=== PATIENT | male | born 1950 | race Caucasian/White ===

== ENCOUNTER 2023-05-31 06:26 | Outpatient (OUT) | payer OTHER, SELFPAY ==
[2023-05-31 07:03] LABS: Basophils Percent Auto 0.6 % (0.2-2.0); Eosinophils Absolute Auto 0.2 10^3/uL (0.0-0.7); Eosinophils Percent Auto 2.8 % (0.9-7.0); Hematocrit 42.1 % (42.0-54.0); Hemoglobin 13.9 g/dL (14.0-18.0); Immature Granulocytes Abs Auto 0.02 10^3/uL (0.00-0.03); Immature Granulocytes Pct Auto 0.3 % (0.0-0.5); Lymphocytes Absolute Auto 1.7 10^3/uL (1.2-3.8); Lymphocytes Percent Auto 27.3 % (20.5-60.0); Mean Corpuscular Hemoglobin 31.4 pg (25.9-34.0); Mean Corpuscular Volume 95.2 fL (80.0-94.0); Mean Platelet Volume 9.6 fL (9.5-13.5); Monocytes Absolute Auto 0.5 10^3/uL (0.3-0.8); Monocytes Percent Auto 7.8 % (1.7-12.0); Neutrophils Absolute Auto 3.9 10^3/uL (1.4-6.5); Neutrophils Percent Auto 61.2 % (43.0-75.0); Platelet Count 193 10^3/uL (150-450); Red Blood Count 4.42 10^6/uL (4.70-6.10); Red Cell Distribution Width 12.7 % (11.0-15.0); White Blood Count 6.4 10^3/uL (4.0-11.0)
[2023-05-31 11:34] LABS: Alanine Aminotransferase 23 U/L (16-63); Albumin Globulin Ratio 1.1; Albumin Level 3.3 g/dL (3.4-5.0); Alkaline Phosphatase 48 U/L (46-116); Aspartate Amino Transferase 15 U/L (15-37); BUN Creatinine Ratio 20.9; Bilirubin Total 0.7 mg/dL (0.2-1.0); Calcium 9.1 mg/dL (8.5-10.1); Carbon Dioxide 29.4 mmol/L (21.0-32.0); Chloride 105 mmol/L (98-107); Chol HDL Ratio 2.5; Cholesterol 136 mg/dL (<=200); Estimated GFR (African America >60 (>=60); Estimated GFR (Non-African Ame >60 (>=60); Globulin 2.9 g/dL; Glucose 130 mg/dL (74-106); HDL Cholesterol 54 mg/dL (40-60); LDL Cholesterol Calculated 71.6 mg/dL; Potassium 4.4 mmol/L (3.5-5.1); Sodium 140 mmol/L (136-145); Total Protein 6.2 g/dL (6.4-8.2); Triglycerides 52 mg/dL (<=150); VLDL CHOLESTEROL 10.4 mg/dL
[2023-05-31 11:38] LABS: Estimated Average Glucose 137 mg/dL; Glycohemoglobin A1C 6.4 % (4.5-6.2)
[2023-05-31 11:52] LABS: Prostate Specific Antigen Scrn 1.72 ng/mL (<=4.00)
== END 2023-05-31 06:27 | disposition home or self-care (01) ==
LOC: LAB 06:32
PROVIDERS: PCP Internal Medicine; Visit Provider Internal Medicine
DX: Z00.00 Encounter for general adult medical examination without abnormal findings (principal); E78.2 Mixed hyperlipidemia; E11.65 Type 2 diabetes mellitus with hyperglycemia; I10 Essential (primary) hypertension; Z12.5 Encounter for screening for malignant neoplasm of prostate
CPT/HCPCS: 36415; 80053; 80061; 83036; 85025; G0103

== ENCOUNTER 2024-06-06 06:33 | Outpatient (OUT) | payer MEDICARE, SELFPAY ==
--- OUTSIDE RECORDS SUMMARY | 2024-06-06 06:39 | XMS_ITS | CCD ---
Author Organization [facility] Care Team Providers Care Forming Acid Dumper Name Role Phone REQUEST, DR SANFORD LISTED Attending Unavaila ble REQUEST, DR SANFORD LISTED Admitting Unavaila ble REQUEST, DR SANFORD LISTED Consulting Unavaila ble BALL, DR HARRIS Primary Care Unavailable BALL, DR HARRIS Attending Unavailable BALL, DR HARRIS Referring Unavailable BALL, DR HARRIS Admitting Unavailable BALL, DR HARRIS Primary Care Unavailable BALL, DR HARRIS Consulting Unavailable BALL, DR HARRIS Attending Unavailable BALL, DR HARRIS Admitting Unavailable BALL, DR HARRIS Primary Care Unavailable BALL, DR HARRIS Consulting Unavailable Rigoberto Brooke Unavailable Rigoberto Brooke DO Primary Care Provider RIGOBERTO BROOKE Referring Unavailable RIGOBERTO BROOKE Primary Care Unavailable LIV PALMA Attending Unavailable LIV PALMA Referring Unavailable RIGOBERTO BROOKE Primary Care Unavailable BELKYS GRECO Admitting Unavailable BELKYS GRECO Attending Unavailable BELKYS GRECO Referring Unavailable RIGOBERTO BROOKE Primary Care Unavailable STEFFANY RENEE Attending Unavailable RIGOEBRTO BROOKE Primary Care Unavailable Allergies Allergy Classification Reported Allergen(s) Allergy Type Date of Onset Reaction(s) Facility (12 sources) Sulfamethoxazole / Trimethoprim Drug Allergy 06-18-19 18 rash [employer] Other (11 sources) Medicinal cephalosporin and acting as antibacterial agent (FN) Drug allergy shortness of breath (severe), wheezing [employer] Other (7 sources) Ceclor *CEPHALOSPORINS* Propensity to adverse reactions Comment:Went to ER for treatment. Gabi Lowe CMA [facility] t3n [employer] Other (2 sources) Cefaclor; Translations: [CEFACLOR] Drug Allergy 06-18-19 18 Shortness Of Breath, Rash [facility] (1 source) Sulfamethoxazole / Trimethoprim; Translations: [SULFAMETHOXAZOLE-T RIMETHOPRIM] Drug Allergy 06-18-19 18 [facility] Medications Current Medications Medication Drug Class(es) Dates Sig (Normalized) Sig (Original) [id number] actuat albuterol 0.09 mg/actuat metered dose inhaler (6 sources) beta2-Adrenergic Agonist Start: 04-21-2023 take 2 puff(s) by inhalation every six hours as needed for cough Albuterol Sulfate HFA 108 (90 Base) MCG/ACT 2 puffs Inhalation every 6 hours as needed for cough and SOB for 30 days Mar, Active Start: 04-21-2023 take 2 puff(s) by in halation every six hours as needed for cough Albuterol Sulfate HFA 108 (90 Base) MCG/ACT 2 puffs Inhalation every 6 hours as needed for cough and SOB for 30 days Mar, Active amLODIPine 5 mg oral tablet (20 sources) Dihydropyridine Calcium Channel Janie take 1 tablet by mouth in the morning amLODIPine (NORVASC) 5 mg tablet Take 1 tablet (5 mg total) by mouth in the morning. 0 Active aspirin 81 mg delayed release oral tablet (20 sources) Platelet Aggregation Inhibitor, Nonsteroidal Anti-inflammatory Drug Start: Aspirin 81 81 MG 1 Orally Once a day for 90 days May, Active Start: 05-31-2022 fluticasone propionate 0.05 mg/actuat metered dose nasal spray (12 sources) Corticosteroid take 2 spray(s) nasal route in the morning fluticasone (FLONASE) 50 mcg/actuation nasal spray Administer 2 sprays into each nostril in the morning. 0 Active take 1 spray(s) nasal route once daily Flonase 50 MCG/DOSE 1 spray in each nostril Nasally Once a day Active take 1 spray(s) nasal route once daily lisinopril 5 mg oral tablet (20 sources) Angiotensin Converting Enzyme Inhibitor take 1 tablet by mouth in the morning lisinopriL (PRINIVIL,ZESTRIL) 5 mg tablet Take 1 tablet (5 mg total) by mouth in the morning. 0 Active metFORMIN hydrochloride 500 mg oral tablet (20 sources) Biguanide take 1 tablet by mouth in the morning, then take 1 tablet by mouth at mealtime metFORMIN (GLUCOPHAGE) 500 mg tablet Take 1 tablet (500 mg total) by mouth in the morning and 1 tablet (500 mg total) in the evening. Take with meals. 0 Active mupirocin 0.02 mg/mg topical ointment (12 sources) RNA Synthetase Inhibitor Antibacterial Start: 023 mupirocin (BACTROBAN) 2 % ointment Apply 1 Application topically in the morning. intranasally. 0 04/16/2023 Active Mupirocin 2 % 1 application Externally Twice a day for 30 days Active Mupirocin Calciu m 2 % 1 application Externally Twice a day for 30 days Active rosuvastatin calcium 5 mg oral tablet (20 sources) HMG-CoA Reductase Inhibitor Start: 05-31-2022 take 1 tablet by mouth in the morning rosuvastatin (CRESTOR) 5 mg tablet Take 1 tablet (5 mg total) by mouth in the morning. 0 09/07/2022 Active Problems Active Problems Problem Classification Problem Date Documented Date Episodic/Chronic Asthma (7 sources) Mild intermittent asthma; Translations: [Mild intermittent asthma, uncomplicated] Chronic Calculus of urinary tract (7 sources) H/O: urinary stone; Translations: [Personal history of urinary calculi] Episodic Cataract (1 source) Cataract Onset: 08-17-2023 Diabetes mellitus with complications (17 sources) Type 2 diabetes mellitus with hyperglycemia; Translations: [Hyperglycemia due to type 2 diabetes mellitus] Onset: 06-05-2021 Chronic Diabetes mellitus without complication (2 sources) Type 2 diabetes mellitus without complication; Translations: [Type 2 diabetes mellitus without complications] Onset: 08-10-2023 08-04-2023 Chronic Disorders of lipid metabolism (15 sources) Mixed hyperlipidemia; Translations: [Mixed hyperlipidemia] Onset: 06-05-2021 Chronic Essential hypertension (20 sources) Essential (primary) hypertension; Translations: [Essential hypertension] Onset: 06-05-2021 Chronic Immunizations and screening for infectious disease (18 sources) Carrier or suspected carrier of Methicillin resistant Staphylococcus aureus; Translations: [Methicillin resistant staphylococcus aureus carrier] Episodic Other aftercare (11 sources) H/O: high risk medication; Translations: [Other exterminator termite (current) drug therapy] Episodic Other aftercare (7 sources) Long-term current use of drug therapy; Translations: [Other custodial (current) drug therapy] Episodic Other and unspecified benign neoplasm (11 sources) Benign neoplasm of colon; Translations: [Benign neoplasm of descending colon] Episodic Other and unspecified benign neoplasm (2 sources) Benign neoplasm of descending colon Episodic Other and unspecified benign neoplasm (7 sources) Benign neoplasm of descending colon; Translations: [Benign neoplasm of descending colon] Episodic Other injuries and conditions due to external causes (7 sources) History of fall; Translations: [History of falling] Episodic Other nutritional; endocrine; and metabolic disorders (18 sources) Overweight; Translations: [Overweight] Episodic Other screening for suspected conditions (not mental disorders or infectious disease) (15 sources) Encounter for screening for malignant neoplasm of prostate; Translations: [Prostate specific antigen measurement] Onset: 06-05-2021 Episodic Past or Other Problems Problem Classification Problem Date Documented Da te Episodic/Chronic Other aftercare (1 source) Other custodial (current) drug therapy; Translations: [OTH BOOK EDITOR CURRENT DRUG THERAPY] Onset: 06-05-2021 Episodic Results Test Name Value Interpretation Reference Range Facility ECG 12 leadon 08-10-2023 TRACEMASTERVUE [facility] Comprehensive Metabolic Pane kurtis 05-31-2023 Albumin [Mass/Vol] 3.743441 g/dL Low 3.4-5.0 g/dL N [employer] ([employer]) Other ALP [Catalytic activity/Vol] 48 U/L Normal 46-116 U/L [employer] Other ALT [Catalytic activity/Vol] 23 U/L Normal 16-63 U/L [employer] Other Anion gap [Moles/Vol] 10.0 mmol/L [employer] Other AST [Catalytic activity/Vol] 15 U/L Normal 15-37 U/L [employer] Other Bilirubin [Mass/Vol] 0.5686547 mg/dL Normal 0.2-1.0 mg /dL [employer] Other Calcium [Mass/Vol] 9.0719668 mg/dL Normal 8.5-10 .1 mg/dL [employer] Other Chloride [Moles/Vol] 105 mmol/L Normal 98-107 mmol/L N [employer] ([employer]) Other CO2 [Moles/Vol] 29.46310086 mmol/L Normal 21.0-3 2.0 mmol/L [employer] Other Creatinine [Mass/Vol] 0.07700171 mg/dL Normal 0.70-1.30 mg/dL [employer] Other Glucose [Mass/Vol] 130 mg/dL High 74-106 mg/dL [facility] t3n [employer] Other Potassium [Moles/Vol] 4.08043689 mmol/L Normal 3.5-5.1 mmol/L [employer] Other Protein [Mass/Vol] 6.825242 g/dL Low 6.4-8.2 g/dL [facility] Other Sodium [Moles/Vol] 140 mmol/L Normal 136-145 mmol/L [employer] Other Urea nitrogen [Mass/Vol] 19.0440921 mg/dL High 7.0-18.0 mg/dL [employer] Other Urea nitrogen/Creatinine [Mass ratio] 20.9 mg/mg [employer] Other Comprehensive Metabolic Panel 2.9 g/dL [employer] Other Comprehensive Metabolic Panel 1.1 [employer] Other Comprehensive Metabolic Panel see note [employer] Other Comprehensive Metabolic Panel >60 >=60 [employer] Other Lipid Panelon 05-31-2023 Cholesterol [Mass/Vol] 136 mg/dL <=200 mg/dL [employer] Other Cholesterol in HDL [Mass/Vol] 54 mg/dL Normal 40-60 mg/dL [employer] Other Triglyceride [Mass/Vol] 52 mg/dL <=150 mg/dL [employer] Other Lipid Panel 71.6 mg/dL [employer] Other Lipid Panel 10.4 mg/dL [employer] Other Lipid Panel 2.5 [employer] Other CBC AUTO DIFFon 05-25-2022 BASO # 0.0 103/ul Normal 0.0-0.1 [facility] Comment on above: Performed By: #### C BC #### [facility] [address] [place] [address] Dr. Marbin Guerra Basophils/100 WBC (Bld) 0.3 % Normal 0.2-2.0 [facility] Comment on above: Performed By: #### C BC #### [facility] [address] [place] [address] Dr. Marbin Guerra EO # 0.1 103/ul Normal 0.0-0.7 [facility] Comment on above: Performed By: #### C BC #### [facility] [address] [place] [address] Dr. Marbin Guerra Eosinophils/100 WBC (Bld) 1.1 % Normal 0.9-7.0 [facility] Comment on above: Performed By: #### C BC #### [facility] [address] [place] [address] Dr. Marbin Guerra Erythrocyte distribution width (RBC) [Ratio] 13.1 % Normal 11.0-15.0 [facility] Comment on above: Performed By: #### C BC #### [facility] [address] [place] [address] Dr. Marbin Guerra Hematocrit (Bld) [Volume fraction] 43.5 % Normal 42.0-54.0 [facility] Comment on above: Performed By: #### C BC #### [facility] [address] [place] [address] Dr. Marbin Guerra Hemoglobin (Bld) [Mass/Vol] 14.5 g/dL Normal 14.0-18.0 [facility] Comment on above: Performed By: #### C BC #### [facility] [address] [place] [address] Dr. Marbin Guerra IG # 0.02 10e3/ul Normal 0.00-0.03 [facility] Comment on above: Performed By: #### C BC #### [facility] [address] [place] [address] Dr. Marbin Guerra IG % 0.3 % Normal 0.0-0.5 [facility] Comment on above: Performed By: #### C BC #### [facility] [address] [place] [address] Dr. Marbin Guerra LYMPH # 1.8 103/ul Normal 1.2-3.8 [facility] Comment on above: Performed By: #### C BC #### [facility] [address] [place] [address] Dr. Marbin Guerra Lymphocytes/100 WBC (Bld) 28.0 % Normal 20.5-60.0 [facility] Comment on above: Performed By: #### C BC #### [facility] [address] [place] [address] Dr. Marbin Guerra MANUAL DIFF REQ NO Normal [facility] Comment on above: Performed By: #### C BC #### [facility] [address] [place] [address] Dr. Marbin Guerra MCH (RBC) [Entitic mass] 31.0 pg Normal 25.9-34.0 [facility] Comment on above: Performed By: #### C BC #### [facility] [address] [place] [address] Dr. Marbin Guerra MCHC (RBC) [Mass/Vol] 33.3 g/dL Normal 29.9-35.2 [facility] Comment on above: Performed By: #### C BC #### [facility] [address] [place] [address] Dr. Marbin Guerra MCV (RBC) [Entitic vol] 93.1 fL Normal 80.0-94.0 [facility] Comment on above: Performed By: #### C BC #### [facility] [address] [place] [address] Dr. Marbin Guerra MONO # 0.4 103/ul Normal 0.3-0.8 [facility] Comment on above: Performed By: #### C BC #### [facility] [address] [address] [address] Marbin Guerra Monocytes/100 WBC (Bld) 6.3 % Normal 1.7-12.0 [facility] Comment on above: Performed By: #### C BC #### [facility] [address] [address] [address] Marbin Guerra NEUT # 4.1 103/ul Normal 1.4-6.5 [facility] Comment on above: Performed By: #### C BC #### [facility] [address] [address] [address] Marbin Guerra Neutrophils/100 WBC (Bld) 64.0 % Normal 43.0-75.0 [facility] Comment on above: Performed By: #### C BC #### [facility] [address] [address] [address] Marbin Guerra Platelet mean volume (Bld) [Entitic vol] 9.9 fL Normal 9.5-13.5 [facility] Comment on above: Performed By: #### C BC #### [facility] [address] [address] [address] Marbin Guerra PLT 173 103/ul Normal 150-450 [facility] Comment on above: Performed By: #### C BC #### [facility] [address] [address] [address] Marbin Guerra RBC 4.67 106/ul Critically low 4.70-6.10 [facility] Comment on above: Performed By: #### C BC #### [facility] [address] [address] [address] Marbin Guerra WBC 6.3 103/ul Normal 4.0-11.0 [facility] Comment on above: Performed By: #### C BC #### [facility] [address] [address] [address] Marbin Guerra GLYCOHEMOGLOBIN A1Con 2022 ADA RECOMMENDATION SEE BELOW Normal [facility] Comment on above: Result Comment: ADA RECOMMENDED LIMIT 4.0 - 6.0 ADA THERAPEUTIC TARGET < 7.0 ACTION SUGGESTED > 7.0 Performed By: #### D ATA1C #### [facility] [address] [address] [address] Marbin Guerra Glucose [Mass/Vol] 137 mg/dL Normal [facility] Comment on above: Performed By: #### D ATA1C #### [facility] [address] [address] [address] Marbin Guerra HbA1c (Bld) [Mass fraction] 6.4 % Critically high 4.5-6.2 [facility] Comment on above: Performed By: #### D ATA1C #### [facility] [address] [address] [address] Marbin Guerra LIPID PROFILEon 05-25-2022 CHOL-HDL RATIO NORM SEE BELOW Normal [facility] Comment on above: Result Comment: 3.3 - 4.4 LOW RISK 4.4 - 7.1 AVERAGE RISK 7.1 - 11.0 MODERATE RISK >11.0 HIGH RISK Performed By: #### L WAYNE BMP, ALT #### [facility] [address] [address] [address] Marbin Guerra Cholesterol [Mass/Vol] 116 mg/dL Normal <=200 [facility] Comment on above: Performed By: #### L WAYNE BMP, ALT #### [facility] [address] [address] [address] Marbin Guerra Cholesterol in HDL [Mass/Vol] 51 mg/dL Normal 40-60 [facility] Comment on above: Performed By: #### L WAYNE BMP, ALT #### [facility] [address] [address] [address] Marbin Guerra Cholesterol in LDL [Mass/Vol] 43.4 mg/dL Normal [facility] Comment on above: Performed By: #### L IPRUFINA BMP, ALT #### [facility] [address] [address] [address] Marbin Guerra Cholesterol.total/Ch olesterol in HDL [Mass ratio] 2.3 {ratio} Normal [facility] Comment on above: Performed By: #### L WAYNE BMP, ALT #### [facility] [address] [address] [address] Marbin Guerra HDL NORMAL > or = 60 mg/dl - LOW CARDIOVASCULAR RISK <40 mg/dl - HIGH CARDIOVASCULAR RISK Normal [facility] Comment on above: Performed By: #### L IPID, BMP, ALT #### [facility] [address] [address] [address] Marbin Guerra LDL CALC NORMAL SEE BELOW Normal [facility] Comment on above: Result Comment: <100 mg/dl OPTIMAL 100 - 129 mg/dl NEAR OR ABOVE OPTIMAL 130 - 159 mg/dl BORDERLINE HIGH 160 - 189 mg/dl HIGH >190 mg/dl VERY HIGH Performed By: #### L IPID, BMP, ALT #### [facility] [address] [address] [address] Marbin Guerra Triglyceride [Mass/Vol] 108 mg/dL Normal <=150 [facility] Comment on above: Performed By: #### L IPID, BMP, ALT #### [facility] [address] [address] [address] Marbin Guerra VLDL CALC 21.6 mg/dL Normal [facility] Comment on above: Performed By: #### L IPID, BMP, ALT #### [facility] [address] [address] [address] Marbin Guerra PROF CHEM 8 (BAS METB)on Anion gap [Moles/Vol] 11.2 mmol/L Normal [facility] Comment on above: Performed By: #### L IPID, BMP, ALT #### [facility] [address] [address] [address] Marbin Guerra Calcium [Mass/Vol] 8.8 mg/dL Normal 8.5-10.1 [facility] Comment on above: Performed By: #### L IPID, BMP, ALT #### [facility] [address] [address] [address] Marbin Guerra Chloride [Moles/Vol] 104 mmol/L Normal 98-107 [facility] Comment on above: Performed By: #### L IPID, BMP, ALT #### [facility] [address] [address] [address] Marbin Guerra CO2 [Moles/Vol] 30.1 mmol/L Normal 21.0-32.0 [facility] Comment on above: Performed By: #### L IPID, BMP, ALT #### [facility] [address] [address] [address] Marbin Guerra Creatinine [Mass/Vol] 0.92 mg/dL Normal 0.70-1.30 [facility] Comment on above: Performed By: #### L IPID, BMP, ALT #### [facility] [address] [address] [address] Marbin Guerra EGFR-AF [facility]CI[facility] >60 Normal >=60 [facility] Comment on above: Performed By: #### L IPID, BMP, ALT #### [facility] [address] [address] [address] Marbin Guerra EGFR-NON AF [facility] >60 Normal >=60 [facility] Comment on above: Performed By: #### L IPID, BMP, ALT #### [facility] [address] [address] [address] Marbin Guerra Glucose [Mass/Vol] 134 mg/dL Critically high 74-106 [facility] Comment on above: Performed By: #### L IPID, BMP, ALT #### [facility] [address] [address] [address] Marbin Guerra Potassium [Moles/Vol] 4.3 mmol/L Normal 3.5-5.1 [facility] Comment on above: Performed By: #### L IPID, BMP, ALT #### [facility] [address] [address] [address] Marbin Guerra Sodium [Moles/Vol] 141 mmol/L Normal 136-145 [facility] Comment on above: Performed By: #### L IPID, BMP, ALT #### [facility] [address] [address] [address] Marbin Guerra Urea nitrogen [Mass/Vol] 22.0 mg/dL Critically high 7.0-18.0 [facility] Comment on above: Performed By: #### L IPID, BMP, ALT #### [facility] [address] [place] [address] Dr. Marbin Guerra Urea nitrogen/Creatinine [Mass ratio] 23.9 mg/mg Normal [facility] Comment on above: Performed By: #### L IPID, BMP, ALT #### [facility] [address] [place] [address] Dr. Marbin Guerra SGPTon 05-25-2022 ALT [Catalytic activity/Vol] 21 U/L Normal 16-63 [facility] Comment on above: Performed By: #### L IPID, BMP, ALT #### [facility] [address] [place] [address] Dr. Marbin Guerra CBC AUTO DIFFon 05-31-2021 BASO # 0.0 103/ul Normal 0.0-0.1 [facility] Comment on above: Performed By: #### C BC #### [facility] [address] [place] [address] Dr. Marbin Guerra Basophils/100 WBC (Bld) 0.5 % Normal 0.2-2.0 [facility] Comment on above: Performed By: #### C BC #### [facility] [address] [place] [address] Dr. Marbin Guerra EO # 0.1 103/ul Normal 0.0-0.7 [facility] Comment on above: Performed By: #### C BC #### [facility] [address] [place] [address] Dr. Marbin Guerra Eosinophils/100 WBC (Bld) 1.8 % Normal 0.9-7.0 [facility] Comment on above: Performed By: #### C BC #### [facility] [address] [place] [address] Dr. Marbin Guerra Erythrocyte distribution width (RBC) [Ratio] 13.1 % Normal 11.0-15.0 [facility] Comment on above: Performed By: #### C BC #### [facility] [address] [place] [address] Dr. Marbin Guerra Hematocrit (Bld) [Volume fraction] 47.0 % Normal 42.0-54.0 [facility] Comment on above: Performed By: #### C BC #### [facility] [address] [place] [address] Dr. Marbin Guerra Hemoglobin (Bld) [Mass/Vol] 15.1 g/dL Normal 14.0-18.0 [facility] Comment on above: Performed By: #### C BC #### [facility] [address] [place] [address] Dr. Marbin Guerra IG # 0.02 10e3/ul Normal 0.00-0.03 [facility] Comment on above: Performed By: #### C BC #### [facility] [address] [place] [address] Dr. Marbin Guerra IG % 0.3 % Normal 0.0-0.5 [facility] Comment on above: Performed By: #### C BC #### [facility] [address] [place] [address] Dr. Marbin Guerra LYMPH # 2.1 103/ul Normal 1.2-3.8 [facility] Comment on above: Performed By: #### C BC #### [facility] [address] [place] [address] Dr. Marbin Guerra Lymphocytes/100 WBC (Bld) 27.6 % Normal 20.5-60.0 [facility] Comment on above: Performed By: #### C BC #### [facility] [address] [place] [address] Dr. Marbin Guerra MANUAL DIFF REQ NO Normal [facility] Comment on above: Performed By: #### C BC #### [facility] [address] [place] [address] Dr. Marbin Guerra MCH (RBC) [Entitic mass] 31.3 pg Normal 25.9-34.0 [facility] Comment on above: Performed By: #### C BC #### [facility] [address] [place] [address] Dr. Marbin Guerra MCHC (RBC) [Mass/Vol] 32.1 g/dL Normal 29.9-35.2 [facility] Comment on above: Performed By: #### C BC #### [facility] [address] [place] [address] Dr. Marbin Guerra MCV (RBC) [Entitic vol] 97.3 fL Critically high 80.0-94.0 [facility] Comment on above: Performed By: #### C BC #### [facility] [facility] [address] [place] [address] Dr. Marbin Guerra MONO # 0.6 103/ul Normal 0.3-0.8 [facility] Comment on above: Performed By: #### C BC #### [facility] [address] [place] [address] Dr. Marbin Guerra Monocytes/100 WBC (Bld) 7.4 % Normal 1.7-12.0 [facility] Comment on above: Performed By: #### C BC #### [facility] [address] [place] [address] Dr. Marbin Guerra NEUT # 4.8 103/ul Normal 1.4-6.5 [facility] Comment on above: Performed By: #### C BC #### [facility] [address] [place] [address] Dr. Marbin Guerra Neutrophils/100 WBC (Bld) 62.4 % Normal 43.0-75.0 [facility] Comment on above: Performed By: #### C BC #### [facility] [address] [place] [address] Dr. Marbin Guerra Platelet mean volume (Bld) [Entitic vol] 9.7 fL Normal 9.5-13.5 [facility] Comment on above: Performed By: #### C BC #### [facility] [address] [place] [address] Dr. Marbin Guerra PLT 192 103/ul Normal 150-450 [facility] Comment on above: Performed By: #### C BC #### [facility] [address] [place] [address] Dr. Marbin Guerra RBC 4.83 106/ul Normal 4.70-6.10 [facility] Comment on above: Performed By: #### C BC #### [facility] [address] [address] [address] Marbin Guerra WBC 7.6 103/ul Normal 4.0-11.0 [facility] Comment on above: Performed By: #### C BC #### [facility] [address] [address] [address] Marbin Guerra GLYCOHEMOGLOBIN A1Con 2021 ADA RECOMMENDATION ADA THERAPEUTIC TARGET 6.0 - 7.0 ACTION SUGGESTED > 7.0 Normal [facility] Comment on above: Performed By: #### A 1C #### [facility] [address] [address] [address] Marbin Guerra Glucose [Mass/Vol] 137 mg/dL Normal [facility] Comment on above: Performed By: #### A 1C #### [facility] [address] [address] [address] Marbin Guerra HbA1c (Bld) [Mass fraction] 6.4 % Critically high <=6.0 [facility] Comment on above: Performed By: #### A 1C #### [facility] [address] [address] [address] Marbin Guerra LIPID PROFILEon 05-31-2021 CHOL-HDL RATIO NORM SEE BELOW Normal [facility] Comment on above: Result Comment: 3.3 - 4.4 LOW RISK 4.4 - 7.1 AVERAGE RISK 7.1 - 11.0 MODERATE RISK >11.0 HIGH RISK Performed By: #### L IPID, BMP, ALT #### [facility] [address] [address] [address] Marbin Guerra Cholesterol [Mass/Vol] 147 mg/dL Normal <=200 [facility] Comment on above: Performed By: #### L IPID, BMP, ALT #### [facility] [address] [address] [address] Marbin Guerra Cholesterol in HDL [Mass/Vol] 61 mg/dL Normal [facility] Comment on above: Performed By: #### L IPID, BMP, ALT #### [facility] [address] [address] [address] Marbin Guerra Cholesterol in LDL [Mass/Vol] 71.6 mg/dL Normal [facility] Comment on above: Performed By: #### L IPID, BMP, ALT #### [facility] [address] [place] [address] Dr. Marbin Guerra Cholesterol.total/Ch olesterol in HDL [Mass ratio] 2.4 {ratio} Normal [facility] Comment on above: Performed By: #### L IPID, BMP, ALT #### [facility] [address] [address] [address] Marbin Guerra HDL NORMAL > or = 60 mg/dl - LOW CARDIOVASCULAR RISK <40 mg/dl - HIGH CARDIOVASCULAR RISK Normal [facility] Comment on above: Performed By: #### L IPID, BMP, ALT #### [facility] [address] [place] [address] Dr. Marbin Guerra LDL CALC NORMAL SEE BELOW Normal [facility] Comment on above: Result Comment: <100 mg/dl OPTIMAL 100 - 129 mg/dl NEAR OR ABOVE OPTIMAL 130 - 159 mg/dl BORDERLINE HIGH 160 - 189 mg/dl HIGH >190 mg/dl VERY HIGH Performed By: #### L IPID, BMP, ALT #### [facility] [address] [place] [address] Dr. Marbin Guerra Triglyceride [Mass/Vol] 72 mg/dL Normal <=150 [facility] Comment on above: Performed By: #### L IPID, BMP, ALT #### [facility] [address] [place] [address] Dr. Marbin Guerra VLDL CALC 14.4 mg/dL Normal [facility] Comment on above: Performed By: #### L IPID, BMP, ALT #### [facility] [address] [place] [address] Dr. Marbin Guerra MICROALBUMIN, RAND URon 01-0 mALB 1.4 mg/L Normal <=30.0 [facility] Comment on above: Performed By: #### M ALBR #### [facility] [address] [place] [address] Dr. Marbin Guerra PROF CHEM 8 (BAS METB)on Anion gap [Moles/Vol] 10.6 mmol/L Normal [facility] Comment on above: Performed By: #### L IPID, BMP, ALT #### [facility] [address] [address] [address] Marbin Guerra Calcium [Mass/Vol] 9.7 mg/dL Normal 8.4-10.2 [facility] Comment on above: Performed By: #### L IPID, BMP, ALT #### [facility] [address] [address] [address] Marbin Guerra Chloride [Moles/Vol] 105 mmol/L Normal 98-107 [facility] Comment on above: Performed By: #### L IPID, BMP, ALT #### [facility] [address] [place] [address] Dr. Marbin Guerra CO2 [Moles/Vol] 30.9 mmol/L Critically high 22.0-30.0 [facility] Comment on above: Performed By: #### L IPID, BMP, ALT #### [facility] [address] [address] [address] Marbin Guerra Creatinine [Mass/Vol] 0.85 mg/dL Normal 0.66-1.25 [facility] Comment on above: Performed By: #### L IPID, BMP, ALT #### [facility] [address] [address] [address] Marbin Guerra EGFR-AF [facility] LUCIAN >60 Normal >=60 [facility] Comment on above: Performed By: #### L IPID, BMP, ALT #### [facility] [address] [place] [address] Dr. Marbin Guerra EGFR-NON AF [facility] LUCIAN >60 Normal >=60 [facility] Comment on above: Performed By: #### L IPID, BMP, ALT #### [facility] [address] [address] [address] Marbin Guerra Glucose [Mass/Vol] 116 mg/dL Critically high 74-106 [facility] Comment on above: Performed By: #### L IPID, BMP, ALT #### [facility] [address] [address] [address] Marbin Guerra Potassium [Moles/Vol] 4.5 mmol/L Normal 3.4-5.0 [facility] Comment on above: Performed By: #### L IPID, BMP, ALT #### [facility] [address] [address] [address] Marbin Guerra Sodium [Moles/Vol] 142 mmol/L Normal 137-145 [facility] Comment on above: Performed By: #### L IPID, BMP, ALT #### [facility] [address] [address] [address] Marbin Guerra Urea nitrogen [Mass/Vol] 26.0 mg/dL Critically high 9.0-20.0 [facility] Comment on above: Performed By: #### L IPID, BMP, ALT #### [facility] [address] [place] [address] Dr. Marbin Guerra Urea nitrogen/Creatinine [Mass ratio] 30.6 mg/mg Normal [facility] Comment on above: Performed By: #### L IPID, BMP, ALT #### [facility] [address] [place] [address] Dr. Marbin Guerra Vital Signs Date Time Vital Sign Value Performing Clinician Facility 08-10-2023 08:25-0400 Body height 170.[address] 08-10-2023 08:25-0400 Body mass index (BMI) [Ratio] 25.84 kg/m2 [address] 08-10-2023 08:25-0400 Body weight 74.[address] 06-07-2023 10:30-0500 Body height 170.18 cm Rigoberto Brooke Other [facility] Other 06-07-2023 10:30-0500 Body mass index (BMI) [Ratio] 26.09 kg/m2 Rigoberto Brooke Other [facility] [employer] Other 06-07-2023 10:30-0500 Body weight 75.57 kg Rigoberto Ball Other [facility] Other 06-07-2023 10:30-0500 Diastolic blood pressure 82 mm[Hg] Rigoberto Ball Other [facility] Other 06-07-2023 10:30-0500 Respiratory rate 12 /min Rigoberto Ball Other [facility] Other 06-07-2023 10:30-0500 Systolic blood pressure 123 mm[Hg] Rigoberto Ball Other [facility] Other 06-01-2022 10:30-0500 Body height 170.18 cm Rigoberto Ball Other [facility] Other 06-01-2022 10:30-0500 Body mass index (BMI) [Ratio] 27.03 kg/m2 Rigoberto Ball Other [facility] Other 06-01-2022 10:30-0500 Body weight 78.29 kg Rigoberto Ball Other [employer] Other 06-01-2022 10:30-0500 Respiratory rate 12 /min Rigoberto Ball Other [facility] Other Encounters Encounter Date Encounter Type Care Provider Facility Start: 08-17-2023 End: 08-17-2023 Evaluation and management of inpatient STEFFANY RENEE [facility] Start: 08-17-2023 End: 08-17-2023 Evaluation and management of inpatient BELKYS GRECO [facility] Start: 08-10-2023 End: 08-11-2023 ambulatory LIV PALMA [facility] Start: 08-10-2023 Encounter for other preprocedural examination RIGOBERTO [facility] Start: 08-10-2023 End: 08-10-2023 Patient encounter procedure [facility] Pre-Admission Testing 1 [facility] - Pre Admit Comment on above: Preop examination (P rimary Dx); Hypertension, unspecified type; Type 2 diabetes mellitus without complication, unspecified whether custodial insulin use ([facility] Start: 08-10-2023 End: 08-10-2023 Preprocedural examination done Pm 1 [facility] Start: 06-07-2023 End: 06-07-2023 ambulatory Rigoberto Brooke Other [employer] Other Start: 06-07-2023 Patient encounter procedure Rigoberto Brooke [facility] Start: 06-07-2023 Telephone encounter Rigoberto Brooke [facility] Start: 05-31-2023 End: 05-31-2023 ambulatory Rigoberto Brooke Other [employer] Other Start: 05-31-2023 Patient encounter procedure Rigoberto Brooke [facility] Start: 05-31-2023 Telephone encounter Rigoberto Brooke [facility] Start: 05-25-2023 End: 05-25-2023 ambulatory Rigoberto Brooke Other [facility] Other Start: 05-25-2023 Encounter for genera l adult medical examination without abnormal findings Rigoberto Brooke [facility] Start: 05-25-2023 Telephone encounter Rigoberto Brooke [facility] Start: 04-29-2023 End: 04-29-2023 ambulatory Rigoberto Brooke Other [employer] Other Start: 04-29-2023 Telephone encounter Rigoberto Brooke [facility] Start: 04-21-2023 End: 04-21-2023 ambulatory Rigoberto Brooke Other [employer] Other Start: 04-21-2023 Telephone encounter Rigoberto Brooke [facility] Start: 04-16-2023 End: 04-16-2023 ambulatory Rigoberto Rishi Other [facility] Other Start: 04-16-2023 Telephone encounter [facility] Start: 09-24-2022 End: 09-24-2022 ambulatory Rigoberto Brooke Other [employer] Other Start: 09-24-2022 Telephone encounter [facility] Start: 09-23-2022 End: 09-23-2022 ambulatory Rigoberto Brooke Other [facility] Other Start: 09-23-2022 Telephone encounter [facility] Start: 06-01-2022 End: 06-01-2022 ambulatory Rigoberto Brooke Other [employer] Other Start: 06-01-2022 Patient encounter procedure [facility] Start: 06-01-2022 Telephone encounter [facility] Start: 05-31-2022 Patient encounter procedure Rigoberto Brooke Other [employer] Other Start: 05-25-2022 End: 05-26-[address] SANFORD LISTED REQUEST Facility:[facility] Start: 06-05-2021 Encounter for genera l adult medical examination without abnormal findings DR RIGOBERTO BROOKE [facility] Start: 06-03-2021 Adult health examination Gerson Brooke Other [employer] Other Start: 05-31-2021 End: 06-01-[address] RIGOBERTO BROOKE Facility:[facility] Start: 05-31-2021 End: 06-01-2021 Encounter for general adult medical examination without abnormal findings DR RIGOBERTO BROOKE Facility:[facility] Procedures Date Procedure Procedure Detail Performing Clinician Start: 04-29-2023 Colonoscopy [facility] 1 Start: 05-25-[address] JUVENAL Billings [facility] Comment on above: Performed By: #### P SASC #### [facility] [address] [place] [address] Dr. Marbin Guerra Start: 05-31-[address] JUVENAL Billings [facility] Comment on above: Performed By: #### P SASC #### [facility] [address] [address] [address] Marbin Guerra Depression screening Heather Brooke Other Depression screening Heather Brooke Other Screening for malign ant neoplasm of prostate Rigoberto Brooke Other Plan of Treatment Date Care Activity Detail Author Start: 04-29-2028 Screening for malign ant neoplasm of colon Colonoscopy [facility] Start: 02-26-2028 DTaP,Tdap and Td Vaccines (2 - Td or Tdap) DTaP,Tdap and Td Vaccines (2 - Td or Tdap) [facility] Start: 08-09-2024 Adult BMI Screening Adult BMI Screen ing [facility] Start: 08-09-2024 Tobacco Screening Tobacco Screening [facility] Start: 08-17-2023 End: 08-17-2023 Admission to same day surgery center 08/17/2023 12:00 PM EDT - 08/17/2023 12:45 PM EDT Surgery [facility] [address] [place] [id number] Belkys Greco MD [address] [place] [address] [id number] EXTRACTION CATARACT INTRAOCULAR LENS [40444 (CPT )] [facility] Comment on above: EXTRACTION CATARACT INTRAOCULAR LENS [20982 (CPT )] Start: 08-17-2023 End: 08-17-2023 Anesthesia consultation 08/17/2023 12:00 PM EDT Anesthesia Event [facility] [address] [place] [id number] Steffany Renee, DO [address] [place] [address] [facility] Start: 08-17-2023 Subsequent hospital visit by physician 08/17/2023 12:00 PM EDT Hospital Encounter [facility] [address] [place] [address] Belkys Greco MD [address] [place] [address] [facility] Start: 08-17-2023 End: 08-17-2023 Xcapsl ctrc rmvl insj io lens prosth w/o ecp EXTRACTION CATARACT INTRAOCULAR LENS cataract left eye 08/17/2023 12:00 PM EDT [facility] Start: 2013 Fall Risk Screening Fall Risk Screen ing [facility] Start: 1966 Adult BMI Follow Up Plan Adult BMI Follow Up Plan [facility] Start: 1966 Diabetic foot examination Diabetic Foot Exam [facility] Start: 1960 Depression Screening Depression Scre ening [facility] Start: 1948 Glaucoma screening Diabetic Op hthalmology Exam [facility] Start: 1948 Medicare Annual Wellness Visit Medicare Annual Wellness Visit [facility] Immunizations Immunization Date Immunization Notes Care Provider Fa cility 03-22-2022 COVID-19 Moderna (BIvalent) Rigoberto Rishi Other [employer] Other 12-16-2021 zoster vaccine recombinant Rigoberto Ball Other [employer] Other 12-16-2021 zoster vaccine, live Benjami n Ball Other [employer] Other 09-21-2021 COVID-19 Vaccine Moderna - Documentation Purposes Only Rigoberto Rishi Other [employer] Other 08-16-2021 zoster vaccine recombinant Rigoberto Ball Other [employer] Other 08-16-2021 zoster vaccine, live Benjami n Ball Other [employer] Other 04-06-2021 COVID-19 Moderna Rigoberto larios Other [employer] Other 02-20-2021 influenza, injectabl e, quadrivalent, preservative free Rigoberto Brooke Other [employer] Other 06-14-2020 COVID-19 Vaccine Moderna - Documentation Purposes Only Rigoberto Brooke Other [employer] Other 05-16-2020 COVID-19 Vaccine Moderna - Documentation Purposes Only Rigoberto Brooke Other [employer] Other 02-25-2018 pneumococcal polysaccharide vaccine, 23 valent Rigoberto Brooke Other [employer] Other Payers Date Payer Category Payer Unknown [id number] 1961 Medicare [id number] 1959 Self-pay 1959 Unknown [id number] 1948 Unknown [id number] 1948 Unknown [id number] 1948 Unknown [id number] 1948 Unknown [id number] 1948 Unknown [id number] 1948 Unknown [id number] 1948 Unknown [id number] Unknown [id number] Unknown [employer] ADVANTAGE [id number] Effective for all dates [phone] [address] [place] [address] [id number] Social History Date Type Detail Facility Start: 07-04-2020 End: 08-10-2023 Sex Assigned At [facility] Start: 12-08-2022 [facility] Work Phone: Start: 12-08-2022 Tobacco use and exposure Smokeless tobacco non-user [facility] Start: 08-10-2023 Alcohol intake Current drinke r of alcohol (finding) [facility] Start: 07-04-2020 End: 08-10-2023 History of Social function [facility] Childcare Unknown [facility] Start: 12-08-2022 Alcohol Comment 1 beer daily [facility] Start: 1950 Sex Assigned At Not on file P [facility] Medical Equipment Procedure Code Equipment Code Equipment Origin al Text Equipment Identifier Dates Lens Iol Ultrase rt 17.0d - [id number] - [id number] Start: 03-25-2021 Clinical Notes 06-01-2022 to 08-10-2023 Patient Instructions Note Date & Type Note Facility 08-10-2023 Instructions Griselda Alcazar RN - 08/10/2023 8:15 AM EDT Preoperative Education Checklist- General Surgery date: 08/17/23 Surgery time: 12p Arrival time: 10a 1. Bring a photo ID and your insurance card with you the day of surgery. You will check in at the main lobby of the [facility]- registration desk is straight ahead as soon as you walk in. Tell them you are here for surgery. 2. If you have a Living Will/Durable Power of Admin Assistant for Health Care that is not on file here, please bring a copy the day of surgery. 3. Please shower/bathe the night before surgery with the provided soap or wipes. Do not shower the morning of surgery- you will do use wipes when you arrive here at the hospital before getting into your surgical gown. Do not shave the area of your procedure for 2 days prior to your surgery. 4. NO powder, lotion, perfume/cologne, aftershave, make-up, deodorant, or hair products after you have bathed. 5. NO nail equatorial guinean/acrylic on at least one finger. If you are having a hand, wrist or foot surgery then all nail equatorial guinean and artificial/acrylic nails must be removed from that hand or foot. 6. Avoid ALL Aspirin and non-steroidal anti-inflammatory drugs and certain vitamins (Ibuprofen, Advil, Aleve, Excedrin, Meloxicam, Celebrex, fish/krill oil, etc.) for 7 days prior to surgery as instructed by your surgeon and/or your prescribing doctor. Tylenol IS ALLOWED. If you are on Ticlid, Xarelto, Eliquis, Pradaxa, Plavix or Coumadin, please check with your prescribing doctor for instructions for when to stop them. 7. If you use an inhaler, continue to use it routinely. 8. Nothing to eat or drink (not even water, gum, mints, or hard candy!) AFTER midnight prior to your surgery. 9. Take only medications that you are instructed to on the morning of surgery with a TINY SIP OF WATER. 10. Choose a responsible adult that will be able to drive you home when you are discharged from your hospital stay for your surgery and can stay with you in your home for 24 hours after your procedure. You must NOT drive any vehicle or operate any machinery for 24 hours after surgery. 11. When you dress for your appointment, please wear loose fitting clothing that is appropriate to accommodate your surgical area procedure. BRING WITH YOU ANY DEVICES YOU MAY NEED: ANCELMO hose, ice machine, sling/swath, brace or special shoe, oversized zip-up or button up shirt, CPAP machine if staying overnight. 12. Do NOT wear jewelry, watches, or any piercings or metal for surgery- leave these valuables and money at home. 13. Do NOT wear contact lenses for surgery- glasses are okay if needed. 14. The anesthesiologist will talk with you the day of surgery and will ask you to sign a Consent Form. 15. Refrain from smoking or any type of tobacco use for at least 8 hours and marijuana for 24 hours prior to arrival for your surgery. 16. If a GREEN BLOOD band is given to you, please bring it with you for the day of surgery. 17. Notify your surgeon if you develop any illness before your surgery. 18. If you are staying overnight, please DO NOT BRING your home medications with you. 19. If you have any questions prior to surgery, please call the Preadmission Testing office at [phone], Mon.-Fri. 7 a.m.-3 p.m. Leave a voicemail if needed. Pre-Surgery Instructions: Medication Instructions amLODIPine (NORVASC) 5 mg tablet Take morning of procedure fluticasone (FLONASE) 50 mcg/actuation nasal spray Take morning of procedure if needed lisinopriL (PRINIVIL,ZESTRIL) 5 mg tablet Take morning of procedure metFORMIN (GLUCOPHAGE) 500 mg tablet Stop taking 0 days prior to procedure mupirocin (BACTROBAN) 2 % ointment Stop taking 0 days prior to procedure rosuvastatin (CRESTOR) 5 mg tablet Stop taking 0 days prior to procedure aspirin 81 mg Stop taking 0 days prior to procedure [facility] Evaluation note Encounter Date Diagnosis Assessment Notes May, Medicare annual wellness visit, subsequent (ICD-10 - Z00.00) Personalized health advice was given to the beneficiary including a written plan for screenings discussed and provided. Advanced care planning reviewed and/or information given as requested. Additional counseling was provided here today in regards to, [ ]. The above visit was performed by [ ], under direct supervision of [ ]. Document reviewed and amended by provider signed below. May, Type 2 diabetes mellitus with hyperglycemia (ICD-10 - E11.65) This patient is following a comprehensive diabetic treatment plan. They are checking their feet daily for calluses and nonhealing ulcers. They are being seen for yearly dilated eye examinations. Goals: SBP less than 130, LDL less than 100, FBS less than 140, A1C less than 7%. They are checking their BS daily, will which are reviewed at the office visit. Continue regular routine monitoring of A1C,] Microalbumin, Dilated eye exam and Foot exam May, Essential hypertension (ICD-10 - I10) This patient is instructed to consume a healthy, low-fat, low-salt diet. They are also encouraged to continue exercise to achieve/maintain a normal BMI. May, Mixed hyperlipidemia (ICD-10 - E78.2) Instructed on diet and exercise with continued statin therapy.Discussed the beneficial effects of lowering cholesterol in reducing the risk for cerebrovascular and cardiovascular disease. May, Adenomatous polyp of descending colon (ICD-10 - D12.4) UTD w/ surveillance scopes. f/u in 5 years. Denies change in bowel habits, melena or hematochezia May, Screening PSA (prostate specific antigen) (ICD-10 - Z12.5) Yearly SHAD and PSA [employer] Other 01-15-2024 Evaluation note* Encounter Date Diagnosis Assessment Notes Treatment Notes Treatment Clinical Notes May, Type 2 diabetes mellitus with hyperglycemia (ICD-10 - E11.65) [employer] Other 01-08-2024 Evaluation note* Encounter Date Diagnosis Assessment Notes Treatment Notes Treatment Clinical Notes May, Mixed hyperlipidemia (ICD-10 - E78.2) May, Screening PSA (prostate specific antigen) (ICD-10 - Z12.5) May, Type 2 diabetes mellitus with hyperglycemia (ICD-10 - E11.65) May, Essential hypertension (ICD-10 - I10) May, Encounter for annual wellness exam in Medicare patient (ICD-10 - Z00.00) [employer] Other 01-02-2024 Evaluation note* Encounter Date Diagnosis Assessment Notes Treatment Notes Treatment Clinical Notes May, Wellness examination (ICD-10 - Z00.00) [employer] Other 11-29-2023 Evaluation note* Encounter Date Diagnosis Assessment Notes Treatment Notes Treatment Clinical Notes Mar, Mild intermittent asthma without complication (ICD-10 - J45.20) [employer] Other 01-09-2023 Evaluation note* Encounter Date Diagnosis Assessment Notes Treatment Notes Treatment Clinical Notes May, Type 2 diabetes mellitus with hyperglycemia (ICD-10 - E11.65) May, Essential hypertension (ICD-10 - I10) [employer] Other 01-09-2023 Evaluation note* Encounter Date Diagnosis Assessment Notes Treatment Notes Treatment Clinical Notes May, Encounter for annual wellness exam in Medicare patient (ICD-10 - Z00.00) May, Essential hypertension (ICD-10 - I10) This patient is instructed to consume a healthy, low-fat, low-salt diet. They are also encouraged to continue exercise to achieve/maintain a normal BMI. May, Type 2 diabetes mellitus with hyperglycemia (ICD-10 - E11.65) This patient is following a comprehensive diabetic treatment plan. They are checking their feet daily for calluses and nonhealing ulcers. They are being seen for yearly dilated eye examinations. Goals: SBP less than 130, LDL less than 100, FBS less than 140, AC and A1C less than 7%. They are checking their BS daily, will which are reviewed at the office visit. May, Mixed hyperlipidemia (ICD-10 - E78.2) Diet and exercise with continued statin therapy. May, Adenomatous polyp of descending colon (ICD-10 - D12.4) Due for colonoscopy this year, will schedule. Denies change in appetite, unexplained weight loss, N/V/D, melena or hematochezia. May, Screening PSA (prostate specific antigen) (ICD-10 - Z12.5) Yearly SHAD and PSA May, Medicare annual wellness visit, subsequent (ICD-10 - Z00.00) Personalized health advice was given to the beneficiary including a written plan for screenings discussed and provided. Advanced care planning reviewed and/or information given as requested. Additional counseling was provided here today in regards to, [ ]. The above visit was performed by [ ], under direct supervision of [ ]. Document reviewed and amended by provider signed below. Healthy diet and exercise. Reviewed age-appropriate preventive testing recommended. [employer] Other Evaluation noteNo InformationNort [facility] Other Evaluation note* Diagnosis Preop examination- Primary Unspecified pre-operative examination Hypertension, unspecified type Type 2 diabetes mellitus without complication, unspecified whether exterminator termite insulin use ([facility] Preop examination Unspecified pre-operative examination Hypertension, unspecified type Type 2 diabetes mellitus without complication, unspecified whether custodial insulin use ([facility]) documented in this encounter [facility] - [facility]orted* Type Description Date Medical History Screening PSA (prostate specific antigen) Medical History Essential hypertension Medical History Mixed hyperlipidemia Medical History High risk medication use Medical History History of kidney stones Medical History Body mass index (BMI) of 25.0 to 29.9 Medical History Depression screening Medical History Encounter for annual wellness exam in Medicare patient Medical History Adenomatous polyp of descending colon Medical History Type 2 diabetes mellitus with hy perglycemia Medical History MRSA nasal colonization Surgical History Cataract Extraction, Right 03/25 Surgical History Bilateral Inguinal Hernia Repai r 08/2012 Surgical History ESWL 05/2012 Surgical History Colonoscopy 11/2008, 06/2017 Hospitalization History see surgical history [employer] Other History general Narrative - Reported* Type Description Date Medical History Screening PSA (prostate specific antigen) Medical History Essential hypertension Medical History Mixed hyperlipidemia Medical History High risk medication use Medical History History of kidney stones Medical History Body mass index (BMI) of 25.0 to 29.9 Medical History Depression screening Medical History Encounter for annual wellness exam in Medicare patient Medical History Adenomatous polyp of descending colon Medical History Type 2 diabetes mellitus with hy perglycemia Medical History MRSA nasal colonization Surgical History Cataract Extraction, Right 03/25 Surgical History Bilateral Inguinal Hernia Repai r 08/2012 Surgical History ESWL 05/2012 Surgical History Colonoscopy 11/2008, 06/2017 Surgical History Colonoscopy w/ polypectomy (rep eat 5 years) 04/2023 Hospitalization History see surgical history [employer] Other Summary Purpose Family History No Family History Records FoundNo Family History Records Found Advance Directives No Advanced Directives Records FoundNo Advanced Directives Records Found Reason for Referral Specialty Diagnoses / Procedures Referred By Contac t Referred To Contact Diagnoses Preop examination Hypertension, unspecified type Type 2 diabetes mellitus without complication, unspecified whether exterminator termite insulin use ([facility]) Procedures ECG 12 lead Liv Palma MD [address] [place] [address] Referral ID Status Reason Start Date Expiration Date V isits Requested Visits Authorized [id number] Pending Review 08/04/2023 08/03/2024 1 1 Additional Source Comments (unrecognized sect ion and content) No Status Records FoundNo Status Records Found INFORMATION SOURCE (unrecogn ized section and content) DATE CREATED AUTHOR 05/25/2022 [facility] DATE CREATED AUTHOR AUTHOR'S ORGANIZ ATION 08/18/2023 [facility] REASON FOR VISIT (unrecogniz ed section and content) prescriptionsFOLLOW UPrefill No InformationrefillsInhalerNo InformationWellness LabsLabsWellnessrefills Care Teams (unrecognized sec tion and content) Forming [employer] Dumper Relationship Specialty Start Date End Date Rigoberto Brooke DO [address] [place] [address] PCP - General Internal Medicine 03/24/21 FOR RECORDS PERTAINING TO PATIENTS WHO ARE OR HAVE BEEN ENROLLED IN A CHEMICAL DEPENDENCY/SUBSTANCEABUSE PROGRAM, SOME INFORMATION MAY BE OMITTED. This clinical summary was aggregated from multiple sources. Caution should be exercised in using it in the provision of clinical care. This summary normalizes information from multiple sources, and as a consequence, information in this document may materially change the coding, format and clinical context of patient data. In addition, data may be omitted in some cases. CLINICAL DECISIONS SHOULD BE BASED ON THE PRIMARY CLINICAL RECORDS. [employer] provides no warranty or guarantee of the accuracy or completeness of information in this document.
[2024-06-06 07:02] LABS: Basophils Percent Auto 0.5 % (0.2-2.0); Eosinophils Absolute Auto 0.1 10^3/uL (0.0-0.7); Eosinophils Percent Auto 1.4 % (0.9-7.0); Hemoglobin 15.1 g/dL (14.0-18.0); Immature Granulocytes Abs Auto 0.03 10^3/uL (0.00-0.03); Immature Granulocytes Pct Auto 0.4 % (0.0-0.5); Lymphocytes Absolute Auto 2.1 10^3/uL (1.2-3.8); Lymphocytes Percent Auto 28.2 % (20.5-60.0); Mean Corpuscular HGB Conc 32.8 g/dL (29.9-35.2); Mean Corpuscular Hemoglobin 31.3 pg (25.9-34.0); Mean Corpuscular Volume 95.2 fL (80.0-94.0); Mean Platelet Volume 10.1 fL (9.5-13.5); Monocytes Absolute Auto 0.4 10^3/uL (0.3-0.8); Monocytes Percent Auto 5.9 % (1.7-12.0); Neutrophils Absolute Auto 4.7 10^3/uL (1.4-6.5); Neutrophils Percent Auto 63.6 % (43.0-75.0); Platelet Count 182 10^3/uL (150-450); Red Blood Count 4.83 10^6/uL (4.70-6.10); Red Cell Distribution Width 13.1 % (11.0-15.0); White Blood Count 7.3 10^3/uL (4.0-11.0)
[2024-06-06 07:04] LABS: Microalbumin Urine Random <1.3 mg/dL (<=30.0)
[2024-06-06 07:06] LABS: Estimated Average Glucose 143 mg/dL; Glycohemoglobin A1C 6.6 % (4.5-6.2)
[2024-06-06 07:39] LABS: Alanine Aminotransferase 21 U/L (16-63); Albumin Globulin Ratio 1.3; Albumin Level 3.7 g/dL (3.4-5.0); Alkaline Phosphatase 50 U/L (46-116); Anion Gap 11.1; Aspartate Amino Transferase 17 U/L (15-37); BUN Creatinine Ratio 18.2; Bilirubin Total 0.6 mg/dL (0.2-1.0); Calcium 8.9 mg/dL (8.5-10.1); Carbon Dioxide 32.4 mmol/L (21.0-32.0); Chloride 105 mmol/L (98-107); Chol HDL Ratio 2.2; Cholesterol 135 mg/dL (<=200); Estimated GFR (African America >60 (>=60 mL/min/1.73m^2); Estimated GFR (Non-African Ame >60 (>=60 mL/min/1.73m^2); Globulin 2.9 g/dL; Glucose 115 mg/dL (74-106); HDL Cholesterol 61 mg/dL (40-60); Potassium 4.5 mmol/L (3.5-5.1); Sodium 144 mmol/L (136-145); Total Protein 6.6 g/dL (6.4-8.2); Triglycerides 55 mg/dL (<=150)
[2024-06-06 07:51] LABS: Prostate Specific Antigen Scrn 1.51 ng/mL (<=4.00)
== END 2024-06-06 06:34 | disposition home or self-care (01) ==
LOC: LAB 06:37
PROVIDERS: PCP Internal Medicine; Visit Provider Internal Medicine
DX: E78.00 Pure hypercholesterolemia, unspecified (principal); I10 Essential (primary) hypertension; E11.65 Type 2 diabetes mellitus with hyperglycemia; Z12.5 Encounter for screening for malignant neoplasm of prostate
CPT/HCPCS: 36415; 80053; 80061; 82043; 82570; 83036; 85025; G0103